=== PATIENT | female | born 1985 | race Caucasian/White ===

== ENCOUNTER 2016-10-25 23:00 | Emergency (ER) | payer OTHER | END 2016-10-26 00:21 | disposition home or self-care (01) | LOC: EC 23:00 | DX: O99.89 Other specified diseases and conditions complicating pregnancy, childbirth and the puerperium (principal); R10.30 Lower abdominal pain, unspecified; O99.342 Other mental disorders complicating pregnancy, second trimester; F90.9 Attention-deficit hyperactivity disorder, unspecified type; O99.332 Smoking (tobacco) complicating pregnancy, second trimester; F17.200 Nicotine dependence, unspecified, uncomplicated; Z3A.24 24 weeks gestation of pregnancy; Z79.899 Other long term (current) drug therapy | CPT/HCPCS: 99284 ==

== ENCOUNTER 2016-10-26 00:30 | Outpatient (CLI) | payer OTHER | END 2016-10-26 01:15 | disposition home or self-care (01) | LOC: FBPOP 00:30 | PROVIDERS: ATTEND Obstetrics & Gynecology | DX: O26.92 Pregnancy related conditions, unspecified, second trimester (principal); Z3A.00 Weeks of gestation of pregnancy not specified | CPT/HCPCS: 99213 ==

== ENCOUNTER 2017-03-07 22:45 | Outpatient (CLI) | payer OTHER ==
[2017-03-08 00:16] VITALS: BP 139/85; PULSE 85; RESP 16; TEMP 98.4
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
== END 2017-03-08 00:02 | disposition home or self-care (01) ==
LOC: FBPOP 22:45
PROVIDERS: ATTEND Obstetrics & Gynecology
DX: O47.1 False labor at or after 37 completed weeks of gestation (principal); Z3A.38 38 weeks gestation of pregnancy
CPT/HCPCS: 59025; 84112; G0463; 99213

== ENCOUNTER 2019-09-25 12:07 | Emergency (ER) | payer OTHER ==
--- NOTE | 2019-09-25 12:37 | ED ---
General Adult HPI - General Chief complaint: Psychiatric Symptoms Stated complaint: headache Time Seen by Provider: 09/25/19 12:18 Source: patient, family, RN notes reviewed Mode of arrival: ambulatory Limitations: no limitations - History of Present Illness Initial comments: Patient is a pleasant 34-year-old female presenting to the emergency Department with complaints of right-sided headache and numbness with associated right arm paresthesias and discomfort. Onset of symptoms was 2-3 days ago. Symptoms were gradual onset and progressively worsening since that time. Discomfort is rated 7/10. No history of chronic headaches however patient does have chronic paresthesias related with neuropathy. Patient admits to feeling anxious. Patient states she has chronic anxiety however this worse. Patient admits to feeling little bit paranoid. Patient has racing thoughts. Patient amiss to having problems at home. Patient is not sleeping well. Patient is not eating well. Patient states she does not feel safe however unable to explain why. No suicidal or homicidal thoughts. - Related Data Home Medications Medication Instructions Recorded Confirmed Dextroamphetamine/Amphetamine 20 mg PO TID 03/07/17 03/07/17 [Adderall] Gabapentin [Neurontin] 800 mg PO TID 03/07/17 03/07/17 Methadone [Dolophine] 90 mg PO DAILY 03/07/17 03/07/17 Allergies Allergy/AdvReac Type Severity Reaction Status Date / Time No Known Allergies Allergy Verified 09/25/19 12:14 Review of Systems ROS Statement: Those systems with pertinent positive or pertinent negative responses have been documented in the HPI. ROS Other: All systems not noted in ROS Statement are negative. Constitutional: Denies: fever Eyes: Denies: eye pain ENT: Denies: ear pain Respiratory: Denies: cough Cardiovascular: Denies: chest pain Endocrine: Reports: fatigue Gastrointestinal: Denies: abdominal pain Genitourinary: Denies: dysuria Musculoskeletal: Denies: back pain Skin: Denies: rash Neurological: Denies: weakness Psychiatric: Reports: as per HPI, anxiety, depression Past Medical History Past Medical History: No Reported History History of Any Multi-Drug Resistant Organisms: None Reported Additional Past Surgical History / Comment(s): colonoscopy Past Psychological History: Anxiety, Depression Smoking Status: Current every day smoker Past Alcohol Use History: None Reported Past Drug Use History: Marijuana General Exam Limitations: no limitations General appearance: alert, anxious Head exam: Present: normocephalic Eye exam: Present: normal appearance ENT exam: Present: normal oropharynx Neck exam: Present: normal inspection Respiratory exam: Present: normal lung sounds bilaterally Cardiovascular Exam: Present: regular rate, normal rhythm GI/Abdominal exam: Present: soft. Absent: tenderness Extremities exam: Present: normal inspection Neurological exam: Present: alert, oriented X3, CN II-XII intact. Absent: motor sensory deficit Expanded Neurological exam: Present: protecting the airway Patient oriented to: Present: person, place, time Speech: Present: fluid speech Cranial nerves: EOM's Intact: Normal, Facial Sensation: Normal Sensory exam: Upper Extremity Light Touch: Normal, Lower Extremity Light Touch: Normal Motor strength exam: RUE: 5, LUE: 5, RLE: 5, LLE: 5 Eye Response: (4) open spontaneously Motor Response: (6) obeys commands Verbal Response: (5) oriented Psychiatric exam: Present: anxious Skin exam: Present: normal color Course Vital Signs 09/25/19 12:08 Temperature 98.3 F Pulse Rate 88 Respiratory 18 Rate Blood Pressure 151/85 O2 Sat by Pulse 95 Oximetry Medical Decision Making - Medical Decision Making Patient reevaluated and resting comfortably in bed. Patient does appear more relaxed. Patient is updated on and normal CT result. Case was discussed with Dr. Elkins covering for hospital call who did agree with admission and MRI and neurology consult. Patient is advised of this however does not want to stay in the hospital at this time. Patient does demonstrate medical decision making. Patient is made aware that findings could lead to stroke or brain swelling or or permanent disability. Patient is made aware that she needs MRI and further evaluation. Patient is also made aware that she does need mental health evaluation. Patient is not suicidal or homicidal and does demonstrate medical decision making. Patient cannot be held against her will and refuses further care at this time. Patient is agreeable to following up with a primary care physician for this. - Lab Data Lab Results 09/25/19 Range/Units 12:30 Urine Opiates Screen Not Detected (NotDetected) Ur Oxycodone Screen Not Detected (NotDetected) Urine Methadone Screen Detected H (NotDetected) Ur Propoxyphene Screen Not Detected (NotDetected) Ur Barbiturates Screen Not Detected (NotDetected) U Tricyclic Antidepress Not Detected (NotDetected) Ur Phencyclidine Scrn Not Detected (NotDetected) Ur Amphetamines Screen Not Detected (NotDetected) U Methamphetamines Scrn Not Detected (NotDetected) U Benzodiazepines Scrn Not Detected (NotDetected) Urine Cocaine Screen Not Detected (NotDetected) U Marijuana (THC) Screen Detected H (NotDetected) - Radiology Data Radiology results: report reviewed (Computed tomography scan of the brain shows hyper-intensity that could possible represent pituitary apoplexy or hemorrhage) Disposition Clinical Impression: Acute anxiety, Pituitary abnormality Disposition: Left Against Medical Advice Instructions (If sedation given, give patient instructions): Anxiety (ED), Brief Psychotic Disorder (ED) Additional Instructions: There is concern for abnormality of the pituitary gland which could be possible tumor or bleeding or stroke or other. This could cause or permanent disability. It is recommended that she stay in the hospital and have further evaluation including neurology evaluation and MRI. You have refused to do this and are leaving against advice. It is strongly recommended that you follow-up with primary care physician as soon as possible, tomorrow. Also consider further evaluation with neurology or neurosurgeon and MRI. It is also recommended that he return for any worsening symptoms including but not limited to headache, weakness, confusion, speech problems, loss of sensation, worsening symptoms or any other concerns. Is patient prescribed a controlled substance at d/c from ED?: No Referrals: Salvador Crooks [STAFF PHYSICIAN] - 1-2 days Time of Disposition: 15:11
[2019-09-25 13:09] LABS: Amphetamine Screen,Urine Not Detected (NotDetected); Barbiturate Screen,Urine Not Detected (NotDetected); Benzodiazepines Screen,Urine Not Detected (NotDetected); Cocaine Screen,Urine Not Detected (NotDetected); Methadone Screen, Urine Detected (NotDetected); Opiate Screen,Urine Not Detected (NotDetected); Oxycodone Screen, Urine Not Detected (NotDetected); Phencyclidine Screen,Urine Not Detected (NotDetected); Tricyclic Antidepressant,Urine Not Detected (NotDetected); Urn Cannabinoid Scrn Detected (NotDetected)
--- NOTE | 2019-09-25 13:50 | CT ---
EXAMINATION TYPE: CT brain wo con DATE OF EXAM: 09/25/2019 COMPARISON: NONE HISTORY: Rt sided SANTACRUZ, Rt arm numbness/discomfort CT DLP: 1084.4 mGycm. Automated Exposure Control for Dose Reduction was Utilized. TECHNIQUE: CT scan of the head is performed without contrast. FINDINGS: There is no acute intraparenchymal hemorrhage or midline shift identified. There is focal hyperintensity within the posterior pituitary gland seen on image 36, 35, and to a lesser degree of 34 on the sagittal sequence. The ventricles and sulci are within normal limits in size. The globes a re intact and the visualized sinuses are clear. Cerebellar tonsils are incidentally noted to be low-l erica. Very trace mucosal thickening within right maxillary sinus. Leftward nasal septal deviation and a right-sided ani bullosa are also incidentally noted. Remaining paranasal sinuses and mastoid ai r cells are aerated. IMPRESSION: Hyperintensity in the posterior pituitary that can be seen in pituitary apoplexy/hemorrha ge MRI could further assess this finding. No intraparenchymal acute hemorrhage or midline shift.
[2019-09-25 15:33] VITALS: BP 134/65; PULSE 86; RESP 20; TEMP 98.2
== END 2019-09-25 15:05 | disposition left against medical advice (07) ==
LOC: EC 12:07
DX: E23.6 Other disorders of pituitary gland (principal); F41.9 Anxiety disorder, unspecified; F32.9 Major depressive disorder, single episode, unspecified; F17.200 Nicotine dependence, unspecified, uncomplicated; Z79.899 Other long term (current) drug therapy; Z53.29 Procedure and treatment not carried out because of patient's decision for other reasons
CPT/HCPCS: 70450; 80306; 82075; 99283; 99284

== ENCOUNTER 2019-09-25 15:43 | Emergency (ER) | payer OTHER ==
[2019-09-25 15:50] VITALS: BP 156/115; PULSE 77; RESP 18; TEMP 98.2
[2019-09-25] MEDS ORDERED: ACETAMINOPHEN TAB 325 MG TAB PO PRN (16:00)
[2019-09-25] MEDS ORDERED: KETOROLAC 30 MG/ML 1 ML VIAL IVP PRN (16:00)
[2019-09-25] MEDS ORDERED: NALOXONE 0.4 MG/ML 1 ML VIAL IV PRN (16:00)
[2019-09-25] MEDS ORDERED: ONDANSETRON 4 MG/2 ML VIAL IVP PRN (16:00)
--- NOTE | 2019-09-25 16:29 | ED ---
Recheck HPI - General Chief Complaint: Recheck/Abnormal Lab/Rx Stated Complaint: recheck - EPS eval, headache Time Seen by Provider: 09/25/19 15:52 Source: patient Mode of arrival: ambulatory Limitations: no limitations - History of Present Illness Initial Comments: Patient is a 34-year-old female presenting to the emergency department for a recheck. Patient states she was here a few hours ago and was advised to be admitted to the hospital however patient did not want to be admitted at that time so she left AMA. Patient returns at this time and is agreeable for admission. Patient states she was having a right-sided headache which is minimal at this time as well as right arm paresthesias. She denies blurry vision, dizziness, chest pain, shortness of breath, nausea, vomiting. She denies recent fever, chills. She has no other complaints at this time. She denies any suicidal or homicidal thoughts. Upon arrival to the ER, her vitals are stable. - Related Data Home Medications Medication Instructions Recorded Confirmed Dextroamphetamine/Amphetamine 20 mg PO TID 03/07/17 03/07/17 [Adderall] Gabapentin [Neurontin] 800 mg PO TID 03/07/17 03/07/17 Methadone [Dolophine] 90 mg PO DAILY 03/07/17 03/07/17 Allergies Allergy/AdvReac Type Severity Reaction Status Date / Time No Known Allergies Allergy Verified 09/25/19 15:47 Review of Systems ROS Statement: Those systems with pertinent positive or pertinent negative responses have been documented in the HPI. ROS Other: All systems not noted in ROS Statement are negative. Past Medical History Past Medical History: No Reported History Additional Past Medical History / Comment(s): chronic pain takes methadone for pain management History of Any Multi-Drug Resistant Organisms: None Reported Additional Past Surgical History / Comment(s): colonoscopy Past Psychological History: Anxiety, Depression Smoking Status: Current every day smoker Past Alcohol Use History: None Reported Past Drug Use History: Marijuana General Exam - General Exam Comments Initial Comments: GENERAL: Well-appearing, well-nourished and in no acute distress. HEAD: Atraumatic, normocephalic. EYES: Pupils equal round and reactive to light, extraocular movements intact, sclera anicteric, conjunctiva are normal. ENT: TMs normal, nares patent, oropharynx clear without exudates. Moist mucous membranes. NECK: Normal range of motion, supple without lymphadenopathy or JVD. LUNGS: Breath sounds clear to auscultation bilaterally and equal. No wheezes rales or rhonchi. HEART: Regular rate and rhythm without murmurs, rubs or gallops. ABDOMEN: Soft, nontender, normoactive bowel sounds. No guarding, no rebound. No masses appreciated. : Deferred EXTREMITIES: Normal range of motion, no pitting or edema. No clubbing or cyanosis. Strength is 5 out of 5 upper and lower extremities bilaterally. Sensation is equal in bilateral upper and lower extremities. She is neurovascular intact. NEUROLOGICAL: Cranial nerves II through XII grossly intact. Normal speech, normal gait. PSYCH: Normal mood, normal affect. SKIN: Warm, Dry, normal turgor, no rashes or lesions noted. Limitations: no limitations Course Vital Signs 09/25/19 15:47 Temperature 98.2 F Pulse Rate 77 Respiratory 18 Rate Blood Pressure 156/115 O2 Sat by Pulse 98 Oximetry Medical Decision Making - Medical Decision Making Patient is a 34-year-old female presenting after leaving AMA a few hours ago. Patient states she is ready to be admitted for headache and neuro consult. After I evaluated the patient, my nurse informed me that she went to interview the patient/start a line and the patient was gone. We did search the ER and she is nowhere to be found. Disposition Clinical Impression: Pituitary abnormality Disposition: Left Against Medical Advice Referrals: None,Stated [Primary Care Provider] - 1-2 days
== END 2019-09-25 16:15 | disposition left against medical advice (07) ==
LOC: EC 15:43
DX: E23.7 Disorder of pituitary gland, unspecified (principal); Z53.29 Procedure and treatment not carried out because of patient's decision for other reasons; F17.200 Nicotine dependence, unspecified, uncomplicated; Z79.899 Other long term (current) drug therapy
CPT/HCPCS: 99283